=== PATIENT | female | born 1950 | race Caucasian/White ===

== ENCOUNTER 2016-06-27 10:02 | Outpatient (CLI) | payer MEDICARE, OTHER | END 2016-06-27 10:03 | disposition home or self-care (01) | DX: Z13.820 Encounter for screening for osteoporosis (principal); M85.89 Other specified disorders of bone density and structure, multiple sites; N95.8 Other specified menopausal and perimenopausal disorders ==

== ENCOUNTER 2017-03-22 09:33 | Outpatient (CLI) | payer MEDICARE, OTHER | END 2017-03-22 09:34 | disposition home or self-care (01) | LOC: SC 09:33 | PROVIDERS: ATTEND Nurse Practitioner Family | DX: G47.33 Obstructive sleep apnea (adult) (pediatric) (principal) | CPT/HCPCS: 99204; G0463; 99212 ==

== ENCOUNTER 2017-04-10 14:30 | Outpatient (CLI) | payer MEDICARE, OTHER | END 2017-04-10 14:31 | disposition home or self-care (01) | LOC: SC 14:30 | PROVIDERS: ATTEND Internal Medicine Pulmonary Disease | DX: G47.33 Obstructive sleep apnea (adult) (pediatric) (principal) | CPT/HCPCS: 99213; G0463; 99212 ==

== ENCOUNTER 2017-08-08 20:24 | Outpatient (CLI) | payer MEDICARE, OTHER | END 2017-08-08 20:25 | disposition home or self-care (01) | LOC: SC 20:24 | PROVIDERS: ATTEND Internal Medicine Pulmonary Disease | DX: G47.33 Obstructive sleep apnea (adult) (pediatric) (principal); G47.61 Periodic limb movement disorder | CPT/HCPCS: 95811 ==

== ENCOUNTER 2017-09-18 09:52 | Outpatient (CLI) | payer MEDICARE, OTHER | END 2017-09-18 09:53 | disposition home or self-care (01) | LOC: SC 09:52 | PROVIDERS: ATTEND Internal Medicine Pulmonary Disease | DX: G47.33 Obstructive sleep apnea (adult) (pediatric) (principal) | CPT/HCPCS: 99213; G0463; 99212 ==

== ENCOUNTER 2020-01-01 08:26 | Outpatient (CLI) | payer MEDICARE, OTHER | END 2020-01-01 08:27 | disposition home or self-care (01) | LOC: RT 08:26 | PROVIDERS: ATTEND Internal Medicine | DX: J44.9 Chronic obstructive pulmonary disease, unspecified (principal) | CPT/HCPCS: 94010 ==

== ENCOUNTER 2020-09-08 09:24 | Outpatient (CLI) | payer MEDICARE, OTHER ==
--- NOTE | 2020-09-08 10:15 | SLEEP CARE CONSULTATION ---
Information from patient questionnaire entered by Mitali Abraham. I have reviewed and concur with the information entered by Mitali Abraham. This document represents the service I personally performed and the decisions made by , Barbra Salter ARNP. History of Present Illness Service Date and Time: 09/08/2020923 Previous diagnosis: Moderate, Obstructive Sleep Apnea-Hypopnea Syndrome AHI: 25 (in 2018) Reason for follow up: annual (last seen ) Equipment type: CPAP Equipment obtained from: Other ([facility]; needs to transfer care) Mask style: Nasal Mask brand: Respironics (Dreamwear) Backup mask available: No (will keep old mask when replaced) Last cushion change: 3 years Prior sleep studies: Yes Year and Where: 2017 - [facility]; 2010 - [facility] Type of Sleep Study: Home sleep study HPI additional information: JAMES WASHINGTON was diagnosed to have moderate, AHI 25, obstructive sleep apnea- hypopnea syndrome and returned today for CPAP therapy annual follow-up. CPAP Compliance Data - Data Reviewed with Patient Average duration of nightly device use: 4 hr 41 min Compliance rate %: 56.1 (180 days)(63.3 last 30) Current pressure setting (cmH2O): 8-12 Humidity settin Heated hose settin Average residual AHI: 3.8 Average large leak: 17 min 11 sec Subjective Missed days of use due to: reports: other Patient concerns: denies: aerophagia, mask discomfort, air blowing in eyes, mask leak noise, condensation in mask/hose, nasal congestion, dry mouth, nose, throat, epistaxis, other Observed to snore while using device: No Current pressure setting perceived as: comfortable On therapy, patient: reports: sleeping better, awakening more refreshed, being more awake and alert during the day, more rested overall. denies: drowsiness while driving Initial [place] Sleepiness Scale score: 18 (in 2018) Current [place] Sleepiness Scale score: 15 Allergies and Home Medications Home medication list reviewed: Yes Allergy and home medication list: Levothyroxine Nortriptyline Gabapentin Duloxetine Physical Exam Heart Rate: 86 O2 Saturation: 98 Height: 5 ft 7 in Weight: 181 lb 9.6 oz Body Mass Index: 28.4 BMI Classification: Overweight Impression and Plan 1. Obstructive Sleep Apnea-Hypopnea Syndrome, moderate, with fair treatment compliance and good apnea control. On CPAP therapy, the patient has better sleep quality and is more rested overall. Patient thought she was doing better on her compliance. She has improved over the last 30 days to 63.3%. She needs supplies but wants to come back for recheck of her compliance before transferring to a new DME. I will have her follow up in 1 month. Compliance guidelines reviewed for insurance coverage. Patient was counseled on the difference between meeting compliance and optimal use of CPAP. Optimal use of CPAP is use of CPAP with all sleep to obtain maximum benefit of treatment. Patient is encouraged to use CPAP with all sleep. Patient voiced understanding. Patient's apnea severity and rationale for treatment to reduce apnea, improve sleep quality and reduce cardiovascular and cerebrovascular events was reviewed. I also reviewed the benefit of consistent device use of CPAP for anxiety, attention deficit and COPD. Patient is overweight and she states she knows she needs to lose a few pounds. She is planning on getting a dog so that she can walk it, increase her activity and try to lose weight. I encouraged her to continue her efforts and to also monitor what she eats. She voiced understanding. * Continue auto CPAP pressure at 8-12 cmH2O * Notify me if snoring with mask or feeling that the pressure is too much or too little * Attempt to lose weight * Call this office if any problems using CPAP * Return for follow up in 1 month, or sooner if concerns arise Counseling Topics: Spare mask, Weight loss health impact Visit Type: In Office Time Spent with Patient (minutes): 26 Provider Statement: I spent 100% of the Face to Face Visit with the patient with greater than 50% spent counseling the patient and coordination of care.
== END 2020-09-08 09:25 | disposition home or self-care (01) ==
LOC: SC 09:24
PROVIDERS: ATTEND Nurse Practitioner Family
DX: G47.33 Obstructive sleep apnea (adult) (pediatric) (principal)
CPT/HCPCS: 99213; G0463; 99212

== ENCOUNTER 2020-10-09 09:22 | Outpatient (CLI) | payer MEDICARE, OTHER ==
--- NOTE | 2020-10-09 10:14 | SLEEP CARE CONSULTATION ---
Information from patient questionnaire entered by Mitali Abraham. I have reviewed and concur with the information entered by Mitali Abraham. This document represents the service I personally performed and the decisions made by , Barbra Salter ARNP. History of Present Illness Service Date and Time: 10/09/2020921 Previous diagnosis: Moderate, Obstructive Sleep Apnea-Hypopnea Syndrome AHI: 25 (in 2018) Reason for follow up: one month Equipment type: CPAP Equipment obtained from: Other ([facility]) Mask style: Nasal Mask brand: Respironics (Dreamwear) Backup mask available: No (needs supplies, new DME today) Prior sleep studies: Yes Year and Where: 2018 - [facility] in [place] Type of Sleep Study: Home sleep study HPI additional information: JAMES WASHINGTON was diagnosed to have moderate, AHI 25, obstructive sleep apnea- hypopnea syndrome and returned today for CPAP therapy one month follow-up. CPAP Compliance Data - Data Reviewed with Patient Average duration of nightly device use: 6 hr 26 min Compliance rate %: 93.3 Current pressure setting (cmH2O): 8-12 Humidity settin Heated hose settin Average residual AHI: 3.7 Average large leak: 27 min 48 sec Subjective Patient concerns: denies: aerophagia, mask discomfort, air blowing in eyes, mask leak noise, condensation in mask/hose, nasal congestion, dry mouth, nose, throat, epistaxis, other Observed to snore while using device: No Current pressure setting perceived as: too low On therapy, patient: reports: sleeping better, awakening more refreshed, being more awake and alert during the day, more rested overall. denies: drowsiness while driving Initial [place] Sleepiness Scale score: 18 (in 2018) Current [place] Sleepiness Scale score: 17 Allergies and Home Medications Home medication list reviewed: Yes (no changes) Review of Systems Review of systems same as previous: Yes (no changes) Physical Exam Heart Rate: 91 O2 Saturation: 96 Height: 5 ft 6.5 in Impression and Plan 1. Obstructive Sleep Apnea-Hypopnea Syndrome, moderate, with good treatment compliance and good apnea control. On CPAP therapy, the patient has better sleep quality and is more rested overall. Patient has a Dreamstation that may be on the recall. I discussed with patient that [employer] has a recall on several devices like the patients machine. Patient was encouraged to register their device online with [employer] for the recall to see if their device is affected. If their device is affected they should start a claim. Patient denies any black particles seen in machine or hoses, any unusual odors c oming from device. Patient has not experienced any physical symptoms such as upper airway irritation, headache, skin or eye irritation, asthma, nausea/vomiting, difficulty breathing or chest pain. Patient informed that they may use an inline CPAP filter that they can obtain online to reduce chance of any particles being inhaled or ingested. We discussed thoroughly the health risks of not using the CPAP versus continuing use with the filter in place. If patient is not able to sleep due to waking up choking, gasping for air or other respiratory distress that they may decide to continue using it until it is either replaced or repaired. Patient voiced understanding and agreement with plan. Patient needs a new DME and now reaches compliance. I will have my clinical trials data coordinator inform of DME options. A DWO prescription will then be made. Patient advised to contact this office if further supply problems. Patient's apnea severity and rationale for treatment to reduce apnea, improve sleep quality and reduce cardiovascular and cerebrovascular events was reviewed. I also reviewed the benefit of consistent device use of CPAP for anxiety, attention deficit and COPD. * Change autoCPAP pressure at 8-13 cmH2O * Transfer DME * Notify me if snoring with mask or feeling that the pressure is too much or too little * Attempt to lose weight * Call this office if any problems using CPAP * Return for follow up in 1 year, or sooner if concerns arise Counseling Topics: Spare mask, Weight loss health impact Visit Type: In Office Time Spent with Patient (minutes): 21 Provider Statement: I spent 100% of the Face to Face Visit with the patient with greater than 50% spent counseling the patient and coordination of care.
== END 2020-10-09 09:23 | disposition home or self-care (01) ==
LOC: SC 09:22
PROVIDERS: ATTEND Nurse Practitioner Family
DX: G47.33 Obstructive sleep apnea (adult) (pediatric) (principal)
CPT/HCPCS: 99213; G0463; 99212

== ENCOUNTER 2021-02-12 10:15 | Outpatient (CLI) | payer MEDICARE, OTHER ==
--- NOTE | 2021-02-12 12:03 | XRAY Report ---
PROCEDURE: Chest 2 View X-Ray INDICATIONS: COUGH TECHNIQUE: 2 view(s) of the chest. COMPARISON: None. FINDINGS: SUPPORT DEVICES: None. LUNGS/PLEURA: Biapical pleural thickening/scarring. No focal consolidation, pleural effusion or space -occupying pneumothorax. MEDIASTINUM: The cardiomediastinal silhouette is within normal limits. BONES/SOFT TISSUES: No acute abnormality. IMPRESSION: 1.No acute cardiopulmonary abnormality. Reviewed by: James Avendaño MD on 02/12/2021 12:01 PM [facility] Approved by: James Avendaño MD on 02/12/2021 12:01 PM [facility] Station ID: [id number]
== END 2021-02-12 10:16 | disposition home or self-care (01) ==
LOC: DI 10:15
PROVIDERS: ATTEND Physician Assistant
DX: R05.9 Cough, unspecified (principal); R06.00 Dyspnea, unspecified

== ENCOUNTER 2021-02-24 07:00 | Outpatient (CLI) | payer MEDICARE, OTHER | END 2021-02-24 23:59 | disposition home or self-care (01) | LOC: RT 07:00 | PROVIDERS: ATTEND Physician Assistant | DX: R06.00 Dyspnea, unspecified (principal) | CPT/HCPCS: 94010 ==

== ENCOUNTER 2021-04-16 12:32 | Outpatient (CLI) | payer MEDICARE, OTHER ==
--- NOTE | 2021-04-16 15:46 | XRAY Report ---
PROCEDURE: Cervical Spine 2 View INDICATIONS: CERVICAGLGIA TECHNIQUE: 3 views of the cervical spine were acquired. COMPARISON: None. FINDINGS: Bones: No fractures or dislocations to the C7 level. The lateral masses of C1 appear intact on the odontoid view. No suspicious bony lesions. Severe disc space narrowing and degenerative endplate ch anges are seen at the C5-6 level with more mild changes at the C6-7 and C7-T1 levels. Facet and uncov ertebral joint hypertrophy is seen throughout the cervical spine. Soft tissues: No prevertebral soft tissue swelling. IMPRESSION: No acute osseous abnormality. Severe degenerative changes at the C5-6 level with more mi ld to moderate degenerative changes throughout the remaining cervical spine. Cervical spine MRI could be obtained for further evaluation if indicated clinically. Reviewed by: Rommel Redmond MD on 04/16/2021 3:44 PM PST Approved by: Rommel Redmond MD on 04/16/2021 3:44 PM PST Station ID: [id number]
--- NOTE | 2021-04-16 16:23 | XRAY Report ---
PROCEDURE: Lumbar Spine 2 View INDICATIONS: LOW BACK PAIN, CERVICALGIA TECHNIQUE: 3 views of the lumbar spine were acquired. COMPARISON: None. FINDINGS: Bones: 5 [id number] vertebrae are present. There is mild scoliosis. There is grade 1 anterolist hesis of L4 on L5. There is grade 1 retrolisthesis of L2 on L3. There is multilevel DDD. Small verteb ral body osteophytes. No vertebral body compression fractures. No suspicious bony lesions. Soft tissues: Overlying bowel gas pattern is normal. No suspicious soft tissue calcifications. IMPRESSION: Grade 1 anterolisthesis of L4 on L5. Grade 1 retrolisthesis of L2 on L3. Mild scoliosis. Mild to moderate DDD. Reviewed by: Edgar Morgan MD on 04/16/2021 4:22 PM [facility] Approved by: Edgar Morgan MD on 04/16/2021 4:22 PM [facility] Station ID: [id number]
--- NOTE | 2021-04-16 16:24 | XRAY Report ---
PROCEDURE: Hip w/Pelvis 2-3V RT INDICATIONS: LOW BACK PAIN, CERVICALGIA TECHNIQUE: AP pelvis with lateral view(s) of the right hip(s). COMPARISON: None. FINDINGS: Bones: No fractures or dislocations. Mild right hip joint space narrowing. Pelvic ring appears inta ct. No suspicious bony lesions. Soft tissues: The visualized bowel gas pattern is normal. No suspicious soft tissue calcifications. IMPRESSION: Mild right hip DJD. Reviewed by: Edgar Morgan MD on 04/16/2021 4:22 PM PST Approved by: Edgar Morgan MD on 04/16/2021 4:22 PM PST Station ID: [id number]
== END 2021-04-16 12:33 | disposition home or self-care (01) ==
LOC: DI.N 12:32
PROVIDERS: ATTEND Physician Assistant
DX: M47.812 Spondylosis without myelopathy or radiculopathy, cervical region (principal); M50.322 Other cervical disc degeneration at C5-C6 level; M51.36 Other intervertebral disc degeneration, lumbar region; M43.16 Spondylolisthesis, lumbar region; M16.11 Unilateral primary osteoarthritis, right hip

== ENCOUNTER 2022-11-01 11:05 | Outpatient (CLI) | payer MEDICARE, OTHER | END 2022-11-01 23:59 | disposition EMS.NT | LOC: EMS 11:05 | DX: R10.10 Upper abdominal pain, unspecified (principal) ==

== ENCOUNTER 2022-11-11 11:08 | Outpatient (CLI) | payer MEDICARE, OTHER ==
--- NOTE | 2022-11-14 12:16 | Mammography Report ---
BILATERAL DIGITAL SCREENING MAMMOGRAM 3D/2D: 11/11/2022 CLINICAL: Routine screening. New Baseline. No prior exams were available for comparison. Both breasts are heterogeneously dense, which may obscure small masses (category c / 51-75% glandular tissue). There is a focal asymmetry in the right breast central to the nipple anterior depth. No other significant masses, calcifications, or other findings are seen in either breast. IMPRESSION: INCOMPLETE: NEEDS ADDITIONAL IMAGING EVALUATION The focal asymmetry in the right breast is indeterminate. Additional views with possible ultrasound are recommended. Based on the Tyrer Cuzick model (a risk assessment model) the patients lifetime risk is 8.0% and her 10 year risk is 6.0%. According to the ACR, ACS, and NCCN guidelines, an annual breast MRI exam padmini g with mammogram is recommended if the patients lifetime risk is 20% or greater. This exam was interpreted at Station ID: [id number]. NOTE: For mammograms, a report in lay terms will be sent to the patient. Approximately 15% of breast malignancies will not be visualized mammographically. In the management of a palpable breast mass, a negative mammogram must not discourage biopsy of a clinically suspicious lesion. Electronically Signed By: Brendan Scott M.D. lc/:11/11/2022 13:59:54 ACR BI-RADS Category 0: Incomplete 3340F PARENCHYMAL PATTERN: (D) - The breast(s) demonstrate(s) heterogeneously dense fibroglandular parenchy ma. BI-RADS CATEGORY: (0) - 0 Mammo and [place] [id number] Immediate follow-up LATERALITY: (B)
== END 2022-11-11 11:09 | disposition home or self-care (01) ==
LOC: DI 11:08
PROVIDERS: ATTEND Nurse Practitioner Family
DX: Z12.31 Encounter for screening mammogram for malignant neoplasm of breast (principal); R92.8 Other abnormal and inconclusive findings on diagnostic imaging of breast

== ENCOUNTER 2022-12-28 09:36 | Outpatient (CLI) | payer MEDICARE, OTHER ==
--- NOTE | 2022-12-28 14:52 | DEXA Report ---
PROCEDURE: Dexa Spine and/or Hip INDICATIONS: POST MENOPAUSAL TECHNIQUE: Dual energy x-ray absorptiometry (DXA) was performed on a writewith System. Regions measur ed are the AP Spine, femoral neck, and if needed forearm. COMPARISON: DEXA 02/12/2021 FINDINGS: Lumbar Spine: Bone Mineral Density 1.114 g/cm/cm,T score -0.6, compared to -1.7. Left Femoral Neck: Bone Mineral Density 0.747 g/cm/cm, T score -2.1, unchanged. Left Hip: Bone Mineral Density g/cm/cm,T score 0.769. -1.9, compared to -2.0 (T score greater or equal to -1.0: NORMAL) (T score from -1.1 to -2.4: OSTEOPENIA) (T score less than or equal to -2.5 to: OSTEOPOROSIS) Impression: By WHO criteria, this patient has osteopenia within the femoral neck and hip, relatively unchanged. I mproved bone mineral density within the lumbar spine. Patients with diagnosis of osteoporosis or osteopenia should have regular bone mineral density assess ment. For those eligible for Medicare, routine testing is allowed once every 2 years. Testing frequ ency can be increased for patients who have rapidly progressing disease or for those who are receivin g medical therapy to restore bone mass. Reviewed by: Hien Brito MD on 12/28/2022 2:50 PM PDT Approved by: Hien Brito MD on 12/28/2022 2:50 PM PDT Station ID: [id number]
== END 2022-12-28 09:37 | disposition home or self-care (01) ==
LOC: DI 09:36
PROVIDERS: ATTEND Nurse Practitioner Family
DX: Z78.0 Asymptomatic menopausal state (principal); M85.89 Other specified disorders of bone density and structure, multiple sites

== ENCOUNTER 2022-12-30 08:40 | Outpatient (CLI) | payer MEDICARE, OTHER ==
--- NOTE | 2023-01-02 10:28 | Mammography Report ---
UNILATERAL RIGHT DIGITAL DIAGNOSTIC MAMMOGRAM 3D/2D WITH SPOT COMPRESSION: 12/30/2022 CLINICAL: Patient returns today to evaluate a focal asymmetry in the right breast. Comparison is made to exam dated: 11/11/2022 mammogram - [facility]. The right breast is heterogeneously dense, which may obscure small masses (category c / 51-75% glandu lar tissue). There is a benign focal asymmetry in the right breast central to the nipple anterior depth. This is not seen in additional views. No other significant masses or calcifications are seen in the breast. IMPRESSION: BENIGN There is no mammographic evidence of malignancy. Return to annual mammogram screening schedule is rec ommended. Based on the Tyrer Cuzick model (a risk assessment model) the patients lifetime risk is 8.0% and her 10 year risk is 6.0%. According to the ACR, ACS, and NCCN guidelines, an annual breast MRI exam padmini g with mammogram is recommended if the patients lifetime risk is 20% or greater. This exam was interpreted at Station ID: [id number]. NOTE: For mammograms, a report in lay terms will be sent to the patient. Approximately 15% of breast malignancies will not be visualized mammographically. In the management of a palpable breast mass, a negative mammogram must not discourage biopsy of a clinically suspicious lesion. Electronically Signed By: Sean Esposito M.D. acr/penrad:12/30/2022 09:25:36 ACR BI-RADS Category 2: Benign Finding(s) 3342F PARENCHYMAL PATTERN: (D) - The breast(s) demonstrate(s) heterogeneously dense fibroglandular immanuel dockery. BI-RADS CATEGORY: (2) - 2 Mammogram [id number] return to screening LATERALITY: (B)
== END 2022-12-30 08:41 | disposition home or self-care (01) ==
LOC: DI 08:40
PROVIDERS: ATTEND Nurse Practitioner Family
DX: R92.8 Other abnormal and inconclusive findings on diagnostic imaging of breast (principal); R92.331 Mammographic heterogeneous density, right breast

== ENCOUNTER 2023-05-16 09:17 | Emergency (ER) | payer MEDICARE, OTHER ==
--- NOTE | 2023-05-16 09:42 | ED Physician Documentation ---
PD HPI LOWER EXT INJURY - Stated complaint Stated Complaint: RT FOOT INJ - Chief complaint Chief Complaint: Ext Problem - History obtained from History obtained from: Patient - History of Present Illness PD HPI LOW EXT INJURY LOCATION: Right, Ankle, Foot Type of injury: Fall, Twist Where injury occurred: Home Timing - onset: Yesterday Timing - details: Abrupt onset Pain level max: 3 Pain level now: 2 Improved by: Ice Worsened by: Moving Associated symptoms: No: Weakness, Numbness, Tingling Contributing factors: No: Anticoagulated Recently seen: Not recently seen - Additional information Additional information: Delightful 73-year-old with prior neuropathy in her feet. Not diabetic. Patient was working on packing up her home, she is in the process of moving. She twisted her right ankle and fell. Complaining of pain in right ankle specifically the lateral malleolus and lateral area of her foot. She suffered an abrasion of her fifth phalange. Also abrasion on the left first and second toes. She was wearing flip-flops at the time. She is ambulatory though with some discomfort. No proximal leg pain no loss of conscious no other injuries at the time of her fall. Review of Systems Constitutional: reports: Reviewed and negative Eyes: reports: Reviewed and negative Ears: reports: Reviewed and negative Nose: reports: Reviewed and negative Throat: reports: Reviewed and negative Cardiac: reports: Reviewed and negative Respiratory: reports: Reviewed and negative GI: reports: Reviewed and negative : reports: Reviewed and negative Skin: reports: Reviewed and negative Musculoskeletal: reports: Reviewed and negative Neurologic: reports: Reviewed and negative Psychiatric: reports: Reviewed and negative Endocrine: reports: Reviewed and negative Immunocompromised: reports: Reviewed and negative PD PAST MEDICAL HISTORY - Past Medical History Past Medical History: Yes Cardiovascular: High cholesterol Respiratory: None Neuro: None Endocrine/Autoimmune: HyPOthyroidism GI: GERD AUTOMOTIVE REPAIR TECHNICIAN: None HEENT: None Psych: Anxiety Musculoskeletal: None Derm: None - Past Surgical History Past Surgical History: Yes /AUTOMOTIVE REPAIR TECHNICIAN: Tubal ligation - Present Medications Home Medications: Ambulatory Orders Medication Instructions Recorded Confirmed Duloxetine HCl [Cymbalta] 20 mg PO DAILY 05/16/23 05/16/23 Gabapentin [Neurontin] 100 mg PO DAILY 05/16/23 05/16/23 Levothyroxine [Synthroid] 88 mcg PO QDAC 05/16/23 05/16/23 Nortriptyline HCl [Pamelor] 50 mg PO DAILY 05/16/23 05/16/23 Rosuvastatin Calcium [Crestor] 10 mg PO DAILY 05/16/23 05/16/23 - Allergies Allergies/Adverse Reactions: Allergies Allergy/AdvReac Type Severity Reaction Status Date / Time erythromycin base AdvReac Cramps Verified 05/16/23 09:31 - Social History Does the pt smoke?: No Smoking Status: Never smoker Does the pt drink ETOH?: No Does the pt have substance abuse?: No - Immunizations Immunizations are current?: Yes - POLST Patient has POLST: No PD ED PE NORMAL - General General: Alert and oriented X 3 - HEENT HEENT: Atraumatic - Neck Neck: Supple, no meningeal sign - Extremities Extremities: Other (She has soft tissue swelling of her right lateral malleolus. This extends inferiorly into the base of her foot. She has no bony tenderness. No ligamentous laxity. Distally pulses are intact. She has a small abrasion on the lateral aspect of her small toe. Cap refill less than 2 seconds. Full ) Results - Vitals Vitals: Vital Signs - 24 hr 05/16/23 09:24 Temperature 36.1 C L Heart Rate 95 Respiratory 20 Rate Blood Pressure 126/55 L O2 Saturation 99 Oxygen O2 Source Room air - Rads (name of study) ankle Relevant Findings:: Final report received (Per my independent personal review has intact ankle mortise, no obvious fracture. Soft tissue swelling is present.) PD Medical Decision Making - ED course ED course: 73-year-old lady with inversion injury of her right ankle. X-rays are negative. She does have soft tissue swelling. Will give her an ankle brace here. She is moving I told her to try to stay off it is much as she can and have friends or family help her with the moving and cleaning process as resting and elevation will be jewell to treating the soft tissue injury. She understands she was given a ankle brace in the ED will be discharged home in stable condition. Plan supportive care as outpatient. Departure - Departure Disposition: 01 Home, Self Care Clinical Impression: Ankle sprain Qualifiers: Encounter type: initial encounter Involved ligament of ankle: anterior talofibular ligament Laterality: right Qualified Code(s): S93.491A - Sprain of other ligament of right ankle, initial encounter Condition: Good Instructions: ED Sprain Ankle Forms: PCP List
--- NOTE | 2023-05-16 10:22 | XRAY Report ---
PROCEDURE: Ankle 3+V RT INDICATIONS: fall, ankle pain and swelling TECHNIQUE: 3 views of the ankle were acquired. COMPARISON: None. FINDINGS: Bones: No fractures or dislocations. Ankle mortise is normally aligned. No suspicious bony lesions . Soft tissues: No tibiotalar joint effusion. Achilles tendon appears normal. IMPRESSION: No visualized acute fracture or dislocation. However, occult injury cannot be excluded. Recommend charlene rt interval imaging follow-up in 7-10 days as clinically indicated for additional evaluation. Reviewed by: Hien Brito MD on 05/16/2023 10:21 AM PDT Approved by: Hien Brito MD on 05/16/2023 10:21 AM PDT Station ID: [id number]
[2023-05-16 11:08] VITALS: BP 154/79; O2SAT 98
== END 2023-05-16 11:09 | disposition home or self-care (01) ==
LOC: ED 09:17
DX: E78.00 Pure hypercholesterolemia, unspecified (principal); E03.9 Hypothyroidism, unspecified; G62.9 Polyneuropathy, unspecified; Z79.899 Other long term (current) drug therapy; S93.491A Sprain of other ligament of right ankle, initial encounter; X50.1XXA Overexertion from prolonged static or awkward postures, initial encounter; Y93.E6 Activity, residential relocation; Y92.008 Other place in unspecified non-institutional (private) residence as the place of occurrence of the external cause
CPT/HCPCS: 99283